=== PATIENT | male | born 1990 | race Caucasian/White ===

== ENCOUNTER 2024-10-02 09:22 | Emergency (ER) | payer OTHER, SELFPAY ==
[2024-10-02 09:29] VITALS: BP 142/98
[2024-10-02 10:25] LABS: % Basophils 0.5 % (0-2); % Eosinophils 1.9 % (0-6); % Immature Granulocytes 0.2 % (0-0.5); % Lymphocytes 26.8 % (20.5-51.1); % Monocytes 13.5 % (1.7-9.3); % Neutrophils 57.1 % (42.2-75.2); Absolute Eosinophils 0.1 10^3/uL (0-0.7); Absolute Lymphocytes 1.6 10^3/uL (1.2-3.4); Absolute Monocytes 0.8 10^3/uL (0.1-0.6); Absolute Neutrophils 3.3 10^3/uL (1.4-6.5); Hematocrit 42.7 % (39.0-52.0); Hemoglobin 14.5 g/dL (13.0-18.0); Mean Corpuscular Hgb 30.5 pg (27.0-31.0); Mean Corpuscular Volume 89.7 fL (80.0-94.0); Mean Platelet Volume 10.4 fL (7.4-10.4); Nucleated Red Blood Cells % 0 % (-); Platelet Count 206 10^3/uL (130-400); Red Blood Cell Count 4.76 10^6/uL (4.70-6.10); Red Cell Dist. Width 12.6 % (11.5-14.5); White Blood Cell Count 5.8 10^3/uL (4.8-10.8)
[2024-10-02 10:29] LABS: ALT (SGPT) 17 U/L (0-50); AST (SGOT) 22 U/L (17-59); Albumin 4.8 g/dl (3.5-5.0); Alkaline Phosphatase 55 U/L (38-126); Blood Urea Nitrogen 14 mg/dl (9-20); Calcium 9.4 mg/dl (8.4-10.2); Carbon Dioxide 24 mmol/L (22-30); Chloride 102 mmol/L (98-107); Glucose 107 mg/dl (70-99); Potassium 3.8 mmol/L (3.5-5.1); Sodium 140 mmol/L (135-145); Total Bilirubin 0.5 mg/dl (0.2-1.3); Total Protein 7.3 g/dl (6.3-8.2); eGFR > 60.00
[2024-10-02 10:59] LABS: TSH Reflex To Free T4 2.69 uIU/ml (0.47-4.68)
[2024-10-02 11:01] LABS: Troponin I < 0.012 ng/ml
[2024-10-02 12:00] VITALS: BP 127/77
--- NOTE | 2024-10-02 12:33 | ED.GENMED ---
History of Present Illness
General
Chief Complaint: Cardiac Symptoms
Source: patient
Exam Limitations: none
Time Seen by Provider: 10/02/24 12:03
Nursing documentation reviewed up to this point in time: agreed with
History of Present Illness
History of Present Illness:
Patient is a 34-year-old male who tested positive for COVID 2 days ago September 30. His symptoms were fatigue. Last night however he reports he had some palpitations which have brought him to the ER. He felt a little lightheaded when he stood up
and then had palpitations. He does feel little anxious and has a history of anxiety. He weaned himself off of Lexapro (here last year and has been doing fine with his anxiety until this. He does report that his heart rate was not elevated because
he was looking at his pulse on his watch.
He had no associated chest pain or shortness of breath. He does have a history of palpitations with anxiety in the past and has had 2 normal echocardiograms in the past.
He denies any fever chills shortness of breath.
Past History
Past History
ED Past Medical History: Asthma and Hypothyroidism
Social History
Tobacco: Non-smoker
Alcohol: Daily
Drug: None
Personal:
Living: with family
Review of Systems
Review of Systems
Allergies reviewed?: Yes
All Other Systems: ROS reviewed and negative except as documented in HPI and ROS
Constitutional: Reports fatigue; Denies fever or chills
EENT: Reports no symptoms
Respiratory: Reports no symptoms
Cardiac: Reports palpitations; Denies chest pain, diaphoresis or syncope
ABD/GI: Reports no symptoms
: Reports no symptoms
Musculoskeletal: Reports no symptoms
Skin: Reports no symptoms
Neurological: Reports no symptoms
Hematologic/Lymphatic: Reports no symptoms
Psychiatric: Reports no symptoms
Phy Exam
General Physical Exam
General Presentation: no apparent distress
General age: appears stated age
General Skin: warm and dry
General Habitus: normal
General Mental: alert
General Hydration: appears well hydrated
Cardiovascular Exam
Cardiovascular Exam: regular rate/rhythm, no murmur and normal peripheral pulses
Pulmonary Exam
Pulmonary Exam: lungs clear and no respiratory distress
Neurological Exam
Neurological Exam: alert and oriented x3
Musculoskeletal Exam
Musculoskeletal Exam: full ROM
Skin Exam
Skin Exam: normal color and warm/dry
Psychiatric Exam
Psychiatric Exam: normal mood/affect
Course
Orders/Labs/Results
Orders:
Orders
10/02/24 09:31
Electrocardiogram (*1) Urgent
Reason for Study: Palpitations
EKG- Treatment ONCE
10/02/24 09:42
Complete Blood Count/With Diff Urgent
Comprehensive Metabolic Panel Urgent
TSH Reflex To Free T4 Urgent
Troponin I Urgent
10/02/24 12:46
Add On- LAB Urgent
Tests Added?: tsh with reflexive t4
Abnormal Lab Results
10/02/24
09:42
Absolute Monos (auto) 0.8 H 10^3/uL
(0.1-0.6)
Monocytes % 13.5 H %
(1.7-9.3)
Glucose 107 H mg/dl
(70-99)
10/02/24 09:42
10/02/24 09:42
Vital Signs
Initial and Last Documented VS:
Initial Vital Signs
Temp Pulse Resp BP Pulse Ox
98.1 F 88 18 142/98 100
10/02/24 09:29 10/02/24 09:29 10/02/24 09:29 10/02/24 09:29 10/02/24 09:29
Last Documented Vital Signs
Temp Pulse Resp BP Pulse Ox
98.1 F 88 18 142/98 100
10/02/24 09:29 10/02/24 09:29 10/02/24 09:29 10/02/24 09:29 10/02/24 09:29
MDM/Problems Addressed
MDM/Problems Addressed:
Patient is a 34-year-old male with COVID. He tested +2 days ago. His symptoms are fatigue. He denies any fever chills nasal congestion chest pain shortness of breath. He does have a history of anxiety and has had palpitations with the symptoms.
He however presents awake alert no acute distress nontachycardic lungs are clear not hypoxic. He has been evaluate by cardiology in the past for palpitations and had normal echoes. Will DC with follow-up with family doctor as well as cardiology.
He is to return if any worsening of symptoms.
Chronic conditions affecting care:
anxiety,
*Critical Care Note
Total Time (30-74mins, 75-104mins- exclusive of procedures): Not Applicable
ED Attending Note
-
Portions of this chart may have been created with voice recognition software.� Occasional wrong word or��sound alike� substitutions may have occurred due to the inherent limitations of voice recognition software.
Discharge Plan
Departure
Patient Disposition: Home (Routine Discharge)
Date of Disposition: 10/02/24
Time of Disposition: 13:09
Patient with high blood pressure during this ER visit?: Yes
Condition: Fair
Covid-19: Not Applicable
Discharge Problem:
COVID-19, Heart palpitations
Instructions: Palpitations ED, COVID-19 in adults - Discharge instructions
Prescriptions:
No Action
cetirizine 10 MG tablet
10 mg PO DAILY
lorazepam 0.5 MG tablet
0.25 mg PO Q4HPRN PRN (Reason: anxiety)
levothyroxine 50 MCG tablet
50 mcg PO DAILY
ibuprofen 200 MG tablet
200 mg PO Q4HPRN PRN (Reason: pain)
escitalopram oxalate 5 MG tablet
5 mg PO DAILY
thiamine HCl (vitamin B1) 100 MG tablet
100 mg PO DAILY 5 Days Qty: 5 0RF
chlordiazepoxide HCl 25 MG capsule
50 mg PO .TAPER PRN (Reason: ANXIETY, AGITATION, WITHDRAWAL) 3 Days Qty: 6 0RF
Rx Instructions:
TAKE 50MG THREE TIMES A DAY X1 DAY
THEN TAKE 50MG TWICE A DAY X1 DAY
THEN TAKE 50MG ONCE A DAY X1 DAY
folic acid 1 MG tablet
1 mg PO DAILY 5 Days Qty: 5 0RF
multivitamin with folic acid [Tab-A-Ariana] 1 TABLET tablet
1 tab PO DAILY 5 Days Qty: 5 0RF
Referrals:
Albert Kenny DO [Family Provider] -
Candice Concepcion DO [Active] -
Activity Restrictions/Additional Instructions:
As discussed stay well-hydrated you may treat your symptoms with Tylenol and ibuprofen. Follow-up with your family doctor in the next several days for reevaluation of your symptoms as well as cardiology for palpitations. Return if any worsening of
symptoms.
Interventions
Interventions:
*Risk Screen - Suicide Last Done: 10/02/24 09:29
Discharge Date and Time
Print Language: MALTESE
[2024-10-02 13:00] VITALS: BP 116/69
[2024-10-02 13:58] VITALS: BP 116/69
== END 2024-10-02 13:59 | disposition home or self-care (01) ==
LOC: EMR 09:22
PROVIDERS: EMERGENCY PHYSICIAN Emergency Medicine; FAMILY PHYSICIAN Family Medicine
DX: U07.1 COVID-19 (principal); R00.2 Palpitations; R03.0 Elevated blood-pressure reading, without diagnosis of hypertension; F41.9 Anxiety disorder, unspecified
CPT/HCPCS: 99284; 80053; 84443; 84484; 85025; 93005

== ENCOUNTER → 2024-12-10 16:07 | Outpatient (REF) | payer OTHER, SELFPAY | LOC: RCS 16:07 | PROVIDERS: ATTENDING PHYSICIAN Internal Medicine Cardiovascular Disease; FAMILY PHYSICIAN Family Medicine | DX: R00.2 Palpitations (principal) | CPT/HCPCS: 93306 ==